=== PATIENT | female | born 1930 | race Caucasian/White ===

== ENCOUNTER 2020-08-23 10:28 | Emergency (ER) | payer MEDICARE, BC ==
[~2020-08-23] VITALS: Ht 154.9 cm; Wt 41.8 kg
--- NOTE | 2020-08-23 10:30 | NUR ---
TOMER PHILLIP. CELL # [phone]
--- NOTE | 2020-08-23 10:44 | NUR ---
Patient requested to not be placed in gown at this time.
[2020-08-23 11:30] VITALS: BP 132/67
[2020-08-23 11:30] LABS: BASOPHILS % (AUTO) 0.1 % (0-1); EOSINOPHILS % (AUTO) 0.2 % (0-6); HEMATOCRIT 40.7 % (35.0-45.0); HEMOGLOBIN 13.6 g/dl (12.0-16.0); LYMPHOCYTES # (AUTO) 0.7 X10'3 (1.1-4.8); LYMPHOCYTES % (AUTO) 9.3 % (21-51); MEAN CORPUSCULAR HGB CONC 33.5 g/dL (33.0-36.5); MEAN CORPUSCULAR VOLUME 92.4 FL (78-98); MEAN PLATELET VOLUME 7.9 FL (7.4-10.4); MONOCYTES # (AUTO) 0.4 X10'3 (0-0.9); MONOCYTES % (AUTO) 5.4 % (2-12); NEUTROPHILS # (AUTO) 5.9 X10'3 (1.8-7.7); PLATELET COUNT 173 X10'3 (140-440); RED BLOOD COUNT 4.41 X10'6 (4.20-5.60); RED CELL DISTRIBUTION WIDTH 13.7 % (11.5-14.5)
--- NOTE | 2020-08-23 11:45 | NUR ---
Pt not currently having any symptoms. Pt having intermittant feeling of "thumping" in her chest for past few days. See Provider assessment and notes.
[2020-08-23 11:48] LABS: ALANINE AMINOTRANSFERASE 36 U/L (12-78); ALBUMIN 3.6 G/DL (3.4-5.0); ALBUMIN/GLOBULIN RATIO 1.1 (1.1-1.5); ALKALINE PHOSPHATASE 71 IU/L (46-116); ANION GAP 8 (8-16); ASPARTATE AMINO TRANSFERASE 30 U/L (10-37); BILIRUBIN,TOTAL 1.2 MG/DL (0.1-1.0); BLOOD UREA NITROGEN 13 MG/DL (7-18); BUN/CREATININE RATIO 18.6 (6.6-38.0); CALCIUM 9.3 MG/DL (8.5-10.1); CHLORIDE 105 MMOL/L (99-107); GLUCOSE 127 MG/DL (70-104); POTASSIUM 3.9 MMOL/L (3.5-5.1); SODIUM 144 MMOL/L (135-145); TOTAL CARBON DIOXIDE 30.6 MMOL/L (24-32); TOTAL PROTEIN 6.9 G/DL (6.4-8.2); eGFR 79 ML/MIN
[2020-08-23 11:58] LABS: MAGNESIUM 2.4 MG/DL (1.5-2.4)
== END 2020-08-23 12:17 | disposition home or self-care (01) ==
LOC: ER 10:29
DX: R00.2 Palpitations (principal); R06.89 Other abnormalities of breathing; E83.42 Hypomagnesemia
CPT/HCPCS: 36415; 71045; 80053; 83735; 83880; 84443; 84484; 85025; 93005; 99285